=== PATIENT | female | born 1950 | race Hispanic/Latino ===

== ENCOUNTER → 2023-08-04 14:03 | Outpatient (REF) | payer OTHER, SELFPAY | LOC: HWRAD 14:03 | PROVIDERS: ATTENDING PHYSICIAN Family Medicine | DX: M85.89 Other specified disorders of bone density and structure, multiple sites (principal) | CPT/HCPCS: 77080 ==

== ENCOUNTER → 2024-10-18 08:59 | Outpatient (REF) | payer OTHER, SELFPAY | LOC: HWRAD 08:59 | PROVIDERS: ATTENDING PHYSICIAN Nurse Practitioner Family; FAMILY PHYSICIAN Family Medicine | DX: K43.2 Incisional hernia without obstruction or gangrene (principal) | CPT/HCPCS: 76705 ==

== ENCOUNTER 2025-02-22 10:54 | Emergency (ER) | payer OTHER, SELFPAY ==
[2025-02-22 10:57] VITALS: BP 122/81
[2025-02-22 11:17] LABS: Hematocrit 50.7 % (37.0-47.0); Hemoglobin 16.4 g/dL (12.0-16.0); Mean Corp Hgb Conc. 32.3 g/dL (33.0-37.0); Mean Corpuscular Volume 92.7 fL (81.0-99.0); Nucleated Red Blood Cells % 0 %; Platelet Count 232 10^3/uL (130-400); Red Cell Dist. Width 13.9 % (11.5-14.5)
[2025-02-22 11:51] LABS: ALT (SGPT) 34 U/L (0-35); AST (SGOT) 40 U/L (14-36); Albumin 4.9 g/dl (3.5-5.0); Alkaline Phosphatase 80 U/L (38-126); Blood Urea Nitrogen 20 mg/dl (7-17); Calcium 10.2 mg/dl (8.4-10.2); Carbon Dioxide 29 mmol/L (22-30); Chloride 100 mmol/L (98-107); Glucose 160 mg/dl (70-99); Lipase 120 U/L (23-300); Potassium 4.1 mmol/L (3.5-5.1); Sodium 138 mmol/L (135-145); Total Protein 7.7 g/dl (6.3-8.2); eGFR > 60.00
[2025-02-22 12:24] VITALS: BP 121/85
[2025-02-22 12:26] VITALS: BMI 22.2
[2025-02-22 13:00] VITALS: BP 109/60
[2025-02-22 13:13] LABS: Urine Character Slightly Cloudy (Clear)
--- NOTE | 2025-02-22 13:24 | ED.GENMED ---
History of Present Illness
General
Chief Complaint: Abdominal Symptoms
Source: patient
Exam Limitations: none
Time Seen by Provider: 02/22/25 12:23
Nursing documentation reviewed up to this point in time: agreed with
History of Present Illness
History of Present Illness:
Patient is a 74-year-old female past medical history of Crohn's presents to the ER for evaluation. Patient started vomiting last night and then started with diarrhea. She was up all night vomiting and had at least 10 episodes of diarrhea. She
does complain of a lot of abdominal pain and cramping. She denies any blood in her diarrhea. She does have a history of bowel resections x 2 in the past and in December had an incisional hernia repaired. In addition she does have history of partial
bowel obstructions. She took an Zofran this morning which did not relieve her symptoms. She denies any fever or chills.
She is currently not medicated on any medication for Crohn's at this time and was doing very well.
Past History
Past History
ED Past Medical History: Hypothyroidism and Other (Crohn's disease)
ED Past Surgical History: Other (hemicolectomy right)
Social History
Tobacco: Non-smoker
Alcohol: None
Personal:
Living: with family
Employment: Retired
Family History
Family History: Other
Phy Exam
General Physical Exam
General Presentation: no apparent distress
General age: appears stated age
General Skin: warm and dry
General Habitus: normal
General Mental: alert
General Hydration: appears well hydrated
Cardiovascular Exam
Cardiovascular Exam: regular rate/rhythm, no murmur and normal peripheral pulses
Pulmonary Exam
Pulmonary Exam: lungs clear and no respiratory distress
Gastrointestinal Exam
Gastrointestinal Exam: soft and other (Nonspecific abdominal tenderness)
Neurological Exam
Neurological Exam: alert and oriented x3
Musculoskeletal Exam
Musculoskeletal Exam: full ROM
Skin Exam
Skin Exam: normal color and warm/dry
Psychiatric Exam
Psychiatric Exam: normal mood/affect
Course
Orders/Labs/Results
Orders:
Orders
02/22/25 11:04
Complete Blood Count/With Diff Urgent
Comprehensive Metabolic Panel Urgent
Lipase Urgent
02/22/25 12:44
Urinalysis Reflex To Culture Urgent
Date Specimen was Collected: 02/22/25
Time Specimen was Collected: 12:42
Urine Microscopic Reflex Cult Urgent
02/22/25 13:29
0.9% Sodium Chloride 1000 ml [Nss] 1,000 ml IV BOLUS
Iohexol [Omnipaque] See Protocol PO NOW STA
Ondansetron Injectable [Zofran] 4 mg IV NOW STA
02/22/25 13:30
CT Abd/pel W Iv And Oral Contr Urgent
Comment:
Reason For Exam: abd pain n/ v/d
Acetaminophen 1000MG/100Ml [Ofirmev] 1,000 mg in 100 ml IV ONCE
Acetaminophen IV Indication:: ED Narcotic Naive Pt-ONCE
Abnormal Lab Results
02/22/25 02/22/25
11:04 12:44
RBC 5.47 H 10^6/uL
(4.20-5.40)
Hgb 16.4 H g/dL
(12.0-16.0)
Hct 50.7 H %
(37.0-47.0)
MCHC 32.3 L g/dL
(33.0-37.0)
Absolute Lymphs (auto) 0.8 L 10^3/uL
(1.2-3.4)
Lymphocytes % 15.1 L %
(20.5-51.1)
BUN 20 H mg/dl
(7-17)
Glucose 160 H mg/dl
(70-99)
AST 40 H U/L
(14-36)
Urine Ketones 3+ A
(Negative)
Ur Occult Blood Reflex 1+ A
(Negative)
Urine Bacteria (Reflex) Few A
(Negative)
Urine Albumin (Reflex) 2+ A
(Neg - Trace)
02/22/25 11:04
02/22/25 11:04
Vital Signs
Initial and Last Documented VS:
Initial Vital Signs
Temp Pulse Resp BP Pulse Ox
98.7 F 110 16 122/81 98
02/22/25 10:57 02/22/25 10:57 02/22/25 10:57 02/22/25 10:57 02/22/25 10:57
Last Documented Vital Signs
Temp Pulse Resp BP Pulse Ox
98.8 F 89 18 111/67 96
02/22/25 16:50 02/22/25 16:50 02/22/25 16:50 02/22/25 16:50 02/22/25 16:50
MDM/Problems Addressed
Differential Diagnosis Includes:
Not limited to dehydration viral syndrome Crohn's flare
MDM/Problems Addressed:
Patient is a 74-year-old with history of Crohn's has not been on Biologics in years presenting with vomiting diarrhea greater than 10 episodes diarrhea last night. She does complain abdominal discomfort. No bloody in diarrhea.
She denies any fever chills. She was given fluids Tylenol and Zofran feeling much better her white count is normal. CAT scan does show acute active Crohn's involving the ileal small bowel loops in the right side of the mid abdomen to mild to
moderate circumferential wall thickening and submucosal edema. She has previous right hemicolectomy and ileocolonic anastomosis.
Case reviewed with GI. Patient does not want to be admitted .
she has previously been evaluated by GI in the past here at [facility] and wishes to follow up as an outpt
she is feeeling better here .
Chronic conditions affecting care:
Crohn's disease
*Pulse Oximetry
SaO2: 97
Oxygen Mode of Delivery: Room air
Patient hypoxic: no
*Critical Care Note
Total Time (30-74mins, 75-104mins- exclusive of procedures): Not Applicable
ED Attending Note
-
Portions of this chart may have been created with voice recognition software.� Occasional wrong word or��sound alike� substitutions may have occurred due to the inherent limitations of voice recognition software.
Discharge Plan
Departure
Patient Disposition: Home (Routine Discharge)
Date of Disposition: 02/22/25
Time of Disposition: 17:05
Patient with high blood pressure during this ER visit?: No
Condition: Fair
Covid-19: Not Applicable
Discharge Problem:
Crohn's colitis
Prescriptions:
No Action
acetaminophen [Tylenol Extra Strength] 500 MG tablet
500 mg PO PRN PRN (Reason: PAIN)
carboxymethylcellulose sodium [Refresh Tears] 15 ML drops
1 drp BOTH EYES PRN PRN (Reason: DRY EYES)
levothyroxine 112 MCG tablet
112 mcg PO DAILY
cholecalciferol (vitamin D3) 1,000 UNITS tablet
5,000 units PO TUTHSA
estradiol 1 APPLIC cream
1 applic VAG WESA
tramadol 50 MG tablet
25 - 50 mg PO Q6HPRN PRN (Reason: severe pain/breakthrough pain) Qty: 5 0RF
diazepam [Valium] 5 MG tablet
5 mg PO Q8HPRN PRN (Reason: pain, spasm) Qty: 12 0RF
Referrals:
Yovani Thacker MD [Active, Gastroenterology]
Arabella Mercer MD [Family Provider, Family Practice]
Activity Restrictions/Additional Instructions:
As discussed please follow-up with GI in the next several days you should receive a phone call from GI if you do not please call them to make an appointment. [facility]. Stay well-hydrated. Return however if any worsening of symptoms of
increased pain lightheadedness bloody stool diarrhea fever chills
Interventions
Interventions:
*Risk Screen - Suicide Last Done: 02/22/25 11:00
*General Assessment Last Done: 02/22/25 12:25
*Neglect/Abuse Screening Last Done: 02/22/25 11:00
*ED- Fall Risk Assessment Last Done: 02/22/25 12:25
*ED COVID-19 Vaccine History Last Done: 02/22/25 12:25
*ED Influenza Vaccine History Last Done: 02/22/25 12:25
*Nursing Disposition Last Done: 02/22/25 17:16
[facility]-Egpud[facility]-Hmvijmtjk[facility] Assessment Last Done: 02/22/25 12:26
Discharge Date and Time
Discharge Date/Time: 02/22/25 17:22
Print Language: THAI
[2025-02-22] MEDS: NSS 1000 IV (13:48)
[2025-02-22] MEDS: OMNIPAQUE 50 ML PO (13:52)
[2025-02-22] MEDS: ZOFRAN 4 MG IV (13:52)
[2025-02-22] MEDS: OFIRMEV 100 IV (13:53)
[2025-02-22 14:00] VITALS: BP 125/66
[2025-02-22 14:34] LABS: Urine Squamous Cell >30 /LPF (Few)
[2025-02-22 14:35] LABS: Urine Red Blood Cell 0-2 /HPF (0-2); Urine White Cell 0-2 /HPF (0-5)
[2025-02-22 15:32] VITALS: BP 130/74
[2025-02-22 16:50] VITALS: BP 111/67
== END 2025-02-22 17:22 | disposition home or self-care (01) ==
LOC: EMR 10:54
PROVIDERS: EMERGENCY PHYSICIAN Student in an Organized Health Care Education/Training Program; FAMILY PHYSICIAN Family Medicine
DX: K50.00 Crohn's disease of small intestine without complications (principal); E03.9 Hypothyroidism, unspecified; Z90.49 Acquired absence of other specified parts of digestive tract
CPT/HCPCS: 99284; 96365; 96375; 96361; 74177; 80053; 81003; 81015; 83690; 85025; Q9967